=== PATIENT | female | born 1965 | race Caucasian/White ===

== ENCOUNTER → 2021-08-30 | Outpatient (CLI) | payer OTHER ==
[2016-08-25 04:51] VITALS: BP 146/64
[~2021-08-30] MED LIST: ASPI-482 PO; CYAN-25 PO; FEXO180T81 PO; HYDR1TAB15 PO; LEVO75TA5 PO; OMEP20TA8 PO; ONDA8TAB12 PO; RANI-376 PO; SUCR1ORA5 PO
[2021-08-30 12:21] LABS: BASO % 1 % (0-3); EOS # 0.1 x10^3/uL (0.0-0.7); EOS % 3 % (0-3); HEMOGLOBIN 13.5 g/dL (12.0-15.5); LYMPH # 1.5 x10^3/uL (1.0-4.8); LYMPH % 33 % (24-48); MEAN CORPUSCULAR HEMOGLOBIN 30 pg (25-35); MEAN CORPUSCULAR HGB CONC 34 g/dL (31-37); MEAN CORPUSCULAR VOLUME 89 fL (79-100); MONO # 0.4 x10^3/uL (0.0-1.1); MONO % 8 % (0-9); NEUT # 2.6 x10^3uL (1.8-7.7); NEUT % 56 % (31-73); PLATELET COUNT 268 x10^3/uL (140-400); RED BLOOD COUNT 4.48 x10^6/uL (3.50-5.40); RED CELL DISTRIBUTION WIDTH 13.8 % (11.5-14.5); WHITE BLOOD COUNT 4.5 x10^3/uL (4.0-11.0)
[2021-08-30 12:53] LABS: ALBUMIN 3.8 g/dL (3.4-5.0); CALCIUM 9.1 mg/dL (8.5-10.1); CREATININE 0.7 mg/dL (0.6-1.0); GFR 86.2; POTASSIUM 4.2 mmol/L (3.5-5.1); TOTAL BILIRUBIN 0.4 mg/dL (0.2-1.0); TOTAL PROTEIN 7.8 g/dL (6.4-8.2); URIC ACID 6.5 mg/dL (2.6-6.0)
[2021-08-30 13:27] LABS: SEDIMENTATION RATE 31 (0-25)
[2021-08-30 14:10] LABS: FREE T4 0.86 ng/dL (0.76-1.46); THYROID STIM HORMONE (TSH) 3.752 uIU/mL (0.358-3.740)
--- NOTE | 2021-08-30 14:54 | RAD ---
AP and Lateral Views of the Chest 08/30/2021 11:54 AM Indication: Reason: SHORT OF BREATH / Spl. Instructions: / History: Comparison: Abdominal series August 25, 2016 Findings: Calcified granuloma in the right lower lobe noted. Linear areas of scarring in the left mid lung again noted. No pneumothorax, pleural effusion, or acute infiltrate is seen. No pleural effusion is seen. Heart size is normal. No acute osseous changes are seen. IMPRESSION: No evidence of acute cardiopulmonary process Electronically signed by: Chaparro Hawk MD (08/30/2021 2:51 PM) [id number]
[2021-08-31 21:06] LABS: ANA INTERP Negative (.)
[2021-09-01 14:09] LABS: GLIA IGA 1 units (0-19); GLIA IGG 4 units (0-19); TRANSGLUTAMINASE IGA AB <2 U/mL (0-3); TRANSGLUTAMINASE IGG AB 6 U/mL (0-5)
[2021-09-03 07:09] LABS: RHEUMATOID FACTOR 10.9 IU/mL (<14.0)
== END ==
LOC: RAD 11:36
PROVIDERS: ATTEND Physician Assistant Medical
DX: R10.9 Unspecified abdominal pain (principal); U09.9 Post COVID-19 condition, unspecified; E03.9 Hypothyroidism, unspecified; M25.50 Pain in unspecified joint; K21.9 Gastro-esophageal reflux disease without esophagitis; M79.10 Myalgia, unspecified site
CPT/HCPCS: 36415; 71046; 80053; 82150; 83516; 83690; 84439; 84443; 84550; 85025; 85651; 86038; 86431